=== PATIENT | female | born 1940 | race Caucasian/White ===

== ENCOUNTER 2023-07-13 06:09 | Day surgery (SDC) | payer MEDICARE, SELFPAY ==
[2023-07-05 12:48] VITALS: BMI 26.0
[2023-07-13 07:30] LABS: Glucose - Point of Care 127 mg/dl (70-99)
[2023-07-13 07:34] VITALS: BP 175/72
[2023-07-13 07:56] VITALS: BMI 26.0
[2023-07-13] MEDS: NORMOSOL-R 1000 IV (08:02)
[2023-07-13 09:02] VITALS: BP 100/43
[2023-07-13 09:15] VITALS: BP 114/96
[2023-07-13 09:30] VITALS: BP 117/71
== END 2023-07-13 09:50 | disposition home or self-care (01) ==
LOC: SDS 06:09
PROVIDERS: ATTENDING PHYSICIAN Surgery; FAMILY PHYSICIAN Family Medicine; OTHER PHYSICIAN Internal Medicine Cardiovascular Disease; OTHER PHYSICIAN Obstetrics & Gynecology; OTHER PHYSICIAN Specialist
DX: K62.9 Disease of anus and rectum, unspecified (principal); K62.4 Stenosis of anus and rectum; L57.0 Actinic keratosis
CPT/HCPCS: 46922; 88304; 36415; 82962; 93005

== ENCOUNTER → 2023-07-24 13:00 | Outpatient (REF) | payer MEDICARE, SELFPAY ==
[2023-07-24 15:16] LABS: ALT (SGPT) 18 U/L (0-35); AST (SGOT) 27 U/L (14-36)
[2023-07-24 15:34] LABS: Free T3 2.89 pg/ml (2.77-5.27); Free T4 1.05 ng/dl (0.78-2.19)
[2023-07-24 15:48] LABS: TSH 2.26 uIU/ml (0.47-4.68)
== END ==
LOC: REG 13:00
PROVIDERS: ATTENDING PHYSICIAN Internal Medicine Endocrinology, Diabetes & Metabolism; FAMILY PHYSICIAN Family Medicine; OTHER PHYSICIAN Internal Medicine Cardiovascular Disease; OTHER PHYSICIAN Specialist
DX: E05.90 Thyrotoxicosis, unspecified without thyrotoxic crisis or storm (principal)
CPT/HCPCS: 36415; 84439; 84443; 84450; 84460; 84481

== ENCOUNTER → 2023-10-02 07:11 | Outpatient (REF) | payer MEDICARE, SELFPAY ==
[2023-10-02 08:46] LABS: % Basophils 0.7 % (0-2); % Eosinophils 1.4 % (0-6); % Immature Granulocytes 0.5 % (0-0.5); % Lymphocytes 20.1 % (20.5-51.1); % Monocytes 8.5 % (1.7-9.3); % Neutrophils 68.8 % (42.2-75.2); Absolute Basophils 0.1 10^3/uL (0-0.2); Absolute Eosinophils 0.1 10^3/uL (0-0.7); Absolute Lymphocytes 1.8 10^3/uL (1.2-3.4); Absolute Monocytes 0.8 10^3/uL (0.1-0.6); Absolute Neutrophils 6.1 10^3/uL (1.4-6.5); Hematocrit 39.8 % (37.0-47.0); Hemoglobin 12.8 g/dL (12.0-16.0); Mean Corp Hgb Conc. 32.2 g/dL (33.0-37.0); Mean Corpuscular Hgb 27.7 pg (27.0-31.0); Mean Corpuscular Volume 86.1 fL (81.0-99.0); Mean Platelet Volume 10.8 fL (7.4-10.4); Nucleated Red Blood Cells % 0 %; Platelet Count 314 10^3/uL (130-400); Red Blood Cell Count 4.62 10^6/uL (4.20-5.40); White Blood Cell Count 8.8 10^3/uL (4.8-10.8)
[2023-10-02 09:28] LABS: Microalbumin, Random Urine < 0.6 mg/dl (0.6-1.7)
[2023-10-02 10:13] LABS: Glycohemoglobin (HgbA1c) 6.5 % (4.0-5.6)
[2023-10-02 10:38] LABS: ALT (SGPT) 15 U/L (0-35); AST (SGOT) 24 U/L (14-36); Albumin 4.2 g/dl (3.5-5.0); Alkaline Phosphatase 93 U/L (38-126); Blood Urea Nitrogen 16 mg/dl (7-17); Calcium 9.9 mg/dl (8.4-10.2); Carbon Dioxide 27 mmol/L (22-30); Chloride 101 mmol/L (98-107); Glucose 105 mg/dl (70-99); Potassium 4.5 mmol/L (3.5-5.1); Sodium 138 mmol/L (135-145); Total Bilirubin 0.6 mg/dl (0.2-1.3); Total Protein 6.6 g/dl (6.3-8.2); eGFR > 60.00
[2023-10-02 11:04] LABS: TSH Reflex To Free T4 3.02 uIU/ml (0.47-4.68)
[2023-10-04 16:53] LABS: HDL Cholesterol 92 mg/dl; LDL Cholesterol, Calculated 73 mg/dl; Total Cholesterol 181 mg/dl (50-199); Triglyceride 84 mg/dl (10-149); Very Low Density Lipoprotein 16 mg/dl (0-30)
== END ==
LOC: REG 07:11
PROVIDERS: ATTENDING PHYSICIAN Family Medicine; FAMILY PHYSICIAN Specialist; OTHER PHYSICIAN Internal Medicine Endocrinology, Diabetes & Metabolism; OTHER PHYSICIAN Specialist; REFERRING PHYSICIAN Internal Medicine Cardiovascular Disease
DX: I42.1 Obstructive hypertrophic cardiomyopathy (principal); I24.0 Acute coronary thrombosis not resulting in myocardial infarction; E11.9 Type 2 diabetes mellitus without complications; E78.00 Pure hypercholesterolemia, unspecified; I12.9 Hypertensive chronic kidney disease with stage 1 through stage 4 chronic kidney disease, or unspecified chronic kidney disease; E03.9 Hypothyroidism, unspecified; D50.0 Iron deficiency anemia secondary to blood loss (chronic); I10 Essential (primary) hypertension
CPT/HCPCS: 36415; 80053; 80061; 82043; 83036; 84443; 85025

== ENCOUNTER 2024-05-13 11:05 | Emergency (ER) | payer MEDICARE, SELFPAY ==
[2024-05-13 11:12] VITALS: BP 124/91
[2024-05-13 11:23] VITALS: BMI 25.9
--- NOTE | 2024-05-13 12:55 | ED.GENMED ---
History of Present Illness
General
Chief Complaint: Skin Surface Trauma
Time Seen by Provider: 05/13/24 12:16
History of Present Illness
History of Present Illness:
84-year-old female presents to the emergency department for evaluation of bleeding from a varicose vein on the left lower leg. She states she scratched a scab and it began to bleed profusely. She is on Eliquis.
Past History
Past History
ED Past Medical History: Arrthythmia, HTN and Other (Cardiomyopathy)
ED Past Surgical History: Cholecystectomy, Gynecological, Tonsilectomy and Other
Social History
Tobacco: Non-smoker
Personal:
Living: with family
Employment: Retired
Review of Systems
Review of Systems
Allergies reviewed?: Yes
All Other Systems: ROS reviewed and negative except as documented in HPI and ROS
Phy Exam
Physical Exam
Physical Exam:
GEN: Well appearing, NAD, WDWN
HEENT: Oral mucosa moist, no scleral icterus
Cardiac: Regular rate
Lung: No respiratory distress, no tachypnea
MSK: No gross deformity or injuries
Skin: Good color, no pallor or jaundice, no rashes. Small punctate wound to the left anterior lower leg no active bleeding
Neuro: AO x3, moves all extremities freely
Psych: Calm, cooperative
Course
Vital Signs
Initial and Last Documented VS:
Initial Vital Signs
Temp Pulse Resp BP Pulse Ox
98.7 F 60 16 124/91 98
05/13/24 11:12 05/13/24 11:12 05/13/24 11:12 05/13/24 11:12 05/13/24 11:12
Last Documented Vital Signs
Temp Pulse Resp BP Pulse Ox
98.7 F 60 16 165/69 98
05/13/24 11:12 05/13/24 11:12 05/13/24 11:12 05/13/24 13:01 05/13/24 11:12
MDM/Problems Addressed
MDM/Problems Addressed:
Glue applied for definitive hemostasis, no evidence for active bleeding in the ED
*Critical Care Note
Total Time (30-74mins, 75-104mins- exclusive of procedures): Not Applicable
ED Attending Note
-
Portions of this chart may have been created with voice recognition software.� Occasional wrong word or��sound alike� substitutions may have occurred due to the inherent limitations of voice recognition software.
Discharge Plan
Departure
Patient Disposition: Home (Routine Discharge)
Date of Disposition: 05/13/24
Time of Disposition: 12:56
Patient with high blood pressure during this ER visit?: No
Discharge Problem:
Bleeding from varicose vein
Instructions: Varicose Veins (DC)
Prescriptions:
No Action
aspirin 81 MG tablet,chewable
81 mg PO DAILY 0RF
Rx Instructions:
take for 6 weeks, then stop
losartan 50 mg Tablet
50 mg PO DAILY
valacyclovir 500 mg Tablet
500 mg PO DAILY PRN (Reason: cold sores)
methimazole 5 mg Tablet
2.5 mg PO DAILY
Patient Comments:
1/2 of 5mg tablet
rosuvastatin 10 mg Tablet
10 mg PO 1800
multivitamin Tablet
1 tab PO DAILY
ascorbic acid (vitamin C) [Vitamin C] 1,000 mg Tablet
1 g PO DAILY
milk thistle 500 mg Capsule
250 mg PO QPM
zinc 50 mg Tablet
25 mg PO QPM
vitamin B complex [B Complex] Capsule
0.5 cap PO DAILY
cholecalciferol (vitamin D3) [Vitamin D3] 50 mcg (2,000 unit) Capsule
50 mcg PO DAILY
coQ10 (ubiquinol) 200 mg Capsule
200 mg PO DAILY
lutein-zeaxanthin 25-5 mg Capsule
1 cap PO QPM
Probiotic 20 billion cell Capsule
20,000 mmu cells PO Q12H
cranberry 650 MG
650 mg PO DAILY
magnesium gluconate 240 MG
240 mg PO QPM
Eliquis 5 MG tablet
5 mg PO Q12H
metformin 500 mg Tablet Extended Release 24 Hr
500 mg PO 0800,1800
Fleet Enema 19-7 gram/118 mL Enema
118 ml MA PRE OP
Referrals:
Jeana Hollins MD [Family Provider] -
Activity Restrictions/Additional Instructions:
The glue will gradually dissolve over the course of approximately 5 to 7 days
Keep the area dry for the remainder today that he may wash as normal in the shower
Return if bleeding continues
Interventions
Interventions:
*Risk Screen - Suicide Last Done: 05/13/24 11:23
*General Assessment Last Done: 05/13/24 11:23
*Neglect/Abuse Screening Last Done: 05/13/24 11:23
*ED COVID-19 Vaccine History Last Done: 05/13/24 11:23
*Nursing Disposition Last Done: 05/13/24 13:02
ED-Skin Assessment Last Done: 05/13/24 11:23
Discharge Date and Time
Discharge Date/Time: 05/13/24 13:10
Print Language: NEPALESE
[2024-05-13 13:01] VITALS: BP 165/69
== END 2024-05-13 13:10 | disposition home or self-care (01) ==
LOC: EMR 11:05
PROVIDERS: EMERGENCY PHYSICIAN Emergency Medicine; FAMILY PHYSICIAN Family Medicine
DX: I83.892 Varicose veins of left lower extremity with other complications (principal); R58 Hemorrhage, not elsewhere classified; I10 Essential (primary) hypertension; I42.9 Cardiomyopathy, unspecified; Z79.01 Long term (current) use of anticoagulants; Z90.49 Acquired absence of other specified parts of digestive tract
CPT/HCPCS: 99282

== ENCOUNTER → 2024-07-18 07:41 | Outpatient (REF) | payer MEDICARE, SELFPAY ==
[2024-07-18 10:43] LABS: Microalbumin, Random Urine 2.2 mg/dl (0.6-1.7); Microalbumin/creatinine Ratio 19.1 mg/g
[2024-07-18 10:47] LABS: ALT (SGPT) 17 U/L (0-35); AST (SGOT) 24 U/L (14-36); Albumin 4.5 g/dl (3.5-5.0); Alkaline Phosphatase 82 U/L (38-126); Blood Urea Nitrogen 14 mg/dl (7-17); Calcium 10.3 mg/dl (8.4-10.2); Carbon Dioxide 30 mmol/L (22-30); Chloride 100 mmol/L (98-107); Glucose 111 mg/dl (70-99); HDL Cholesterol 106 mg/dl; LDL Cholesterol, Calculated 65 mg/dl; Potassium 5.1 mmol/L (3.5-5.1); Sodium 139 mmol/L (135-145); Total Bilirubin 0.8 mg/dl (0.2-1.3); Total Cholesterol 194 mg/dl (50-199); Total Protein 7.3 g/dl (6.3-8.2); Triglyceride 115 mg/dl (10-149); Very Low Density Lipoprotein 23 mg/dl (0-30); eGFR > 60.00
[2024-07-18 10:51] LABS: Glycohemoglobin (HgbA1c) 6.5 % (4.0-5.6)
[2024-07-18 11:09] LABS: Free T3 3.29 pg/ml (2.77-5.27); Free T4 1.13 ng/dl (0.78-2.19)
[2024-07-18 11:23] LABS: TSH 3.63 uIU/ml (0.47-4.68)
== END ==
LOC: REG 07:41
PROVIDERS: ATTENDING PHYSICIAN Internal Medicine Endocrinology, Diabetes & Metabolism; FAMILY PHYSICIAN Family Medicine; OTHER PHYSICIAN Specialist; REFERRING PHYSICIAN Internal Medicine Cardiovascular Disease
DX: E05.90 Thyrotoxicosis, unspecified without thyrotoxic crisis or storm (principal); R73.03 Prediabetes
CPT/HCPCS: 36415; 80053; 80061; 82043; 82570; 83036; 84439; 84443; 84481

== ENCOUNTER → 2024-12-13 13:39 | Outpatient (REF) | payer MEDICARE, SELFPAY | LOC: RCS 13:39 | PROVIDERS: ATTENDING PHYSICIAN Internal Medicine Cardiovascular Disease; FAMILY PHYSICIAN Family Medicine; OTHER PHYSICIAN Specialist; REFERRING PHYSICIAN Internal Medicine Endocrinology, Diabetes & Metabolism | DX: I25.10 Atherosclerotic heart disease of native coronary artery without angina pectoris (principal); I42.2 Other hypertrophic cardiomyopathy; I35.0 Nonrheumatic aortic (valve) stenosis | CPT/HCPCS: 93306 ==